=== PATIENT | female | born 1965 | race Two or more races ===

== ENCOUNTER 2017-04-24 08:25 | Emergency (ER) | payer BC ==
[2017-04-24 08:32] VITALS: BP 105/62; PULSE 93; TEMP 98.9; BMI 23.3
[2017-04-24] MEDS ORDERED: IBUPROFEN 400 MG TABLET (FP) PO ONE ×2 (09:04→09:13)
--- NOTE | 2017-04-24 09:22 | PDOC ---
History of Present Illness - General Chief Complaint: Cold Symptoms Stated Complaint: SOB Time Seen by Provider: 04/24/17 08:58 History Source: Patient Exam Limitations: No Limitations - History of Present Illness Initial Comments: 04/24/17 09:50 52 yr female no past medical history with chills, cough nasal congestion for 2 days. neg nvd neg abd pain or urinary complaints. Pt taking theraflu at home. 04/24/17 10:13 Past History - Past Medical History Allergies/Adverse Reactions: Allergies Allergy/AdvReac Type Severity Reaction Status Date / Time No Known Allergies Allergy Verified 04/24/17 08:32 Home Medications: Ambulatory Orders Cefpodoxime Proxetil [Vantin -] 100 mg PO BID #20 tablet 08/06/15 Lipase/Protease/Amylase [Creon Dr 24,000 Units Capsule] 1 each PO TID 08/06/15 Methocarbamol [Robaxin -] 500 mg PO TID PRN #30 tablet 08/06/15 Naproxen [Naprosyn -] 500 mg PO BID PRN #14 tablet 08/06/15 Oxycodone HCl/Acetaminophen [Percocet 5-325 mg Tablet -] 1 tab PO Q6H PRN #5 tablet 08/06/15 Benzonatate [Tessalon Pearls -] 200 mg PO TID #42 cap 04/24/17 Fluticasone Prop 0.05% Nasal [Flonase -] 1 - 2 spray NS DAILY #1 spray.pump COPD: No - Surgical History Abdominal Surgery: Yes (TUBAL LIGATION) - Reproductive History (#): 2 Para: 2 Cervical CA: No Dysfunctional Uterine Bleeding: No Ectopic : No Endometrial CA: No Polycystic Ovaries: No Therapeutic (s) & number: No Tubal Ligation: Yes - Suicide/Smoking/Psychosocial Hx Smoking Status: No Smoking History: Never smoked Have you smoked in the past 12 months: No Number of Cigarettes Smoked Daily: 0 Hx Alcohol Use: Yes (SOCIAL) Drug/Substance Use Hx: No Substance Use Type: None Respiratory Specific PMHX - Complaint Specific PMHX Angina: No Bronchitis: No Pneumonia: No Pulmonary Embolus: No TB (Tuberculosis): No Review of Systems - Review of Systems Able to Perform ROS?: Yes Is the patient limited Latvian proficient: No Constitutional: Yes: Symptoms Reported, Malaise HEENTM: Yes: Nose Congestion Respiratory: Yes: Cough (dry ) Cardiac (ROS): No: Symptoms Reported ABD/GI: No: Symptoms Reported : No: Symptoms Reported Musculoskeletal: No: Symptoms Reported Integumentary: No: Symptoms Reported Neurological: No: Symptoms reported *Physical Exam - Vital Signs Last Vital Signs Temp Pulse Resp BP Pulse Ox 98.9 F 93 H 20 105/62 99 04/24/17 08:30 04/24/17 08:30 04/24/17 08:30 04/24/17 08:30 04/24/17 08:30 - Physical Exam General Appearance: Yes: Nourished, Appropriately Dressed HEENT: positive: EOMI, RED, Normal ENT Inspection, TMs Normal, Nasal Congestion Neck: positive: Supple. negative: Lymphadenopathy (R), Lymphadenopathy (L) Respiratory/Chest: positive: Lungs Clear, Normal Breath Sounds. negative: Wheezing Cardiovascular: positive: Regular Rhythm, Regular Rate Gastrointestinal/Abdominal: positive: Normal Bowel Sounds, Soft. negative: Tender Musculoskeletal: positive: Normal Inspection Extremity: positive: Normal Capillary Refill, Normal Inspection, Normal Range of Motion Integumentary: positive: Normal Color, Dry, Warm Neurologic: positive: Fully Oriented, Alert, Normal Mood/Affect, Normal Response , Motor Strength 5/5 Medical Decision Making - Medical Decision Making 04/24/17 09:52 cc: nasal congestion cough body aches neg abd pain neg chest pain or SOB *DC/Admit/Observation/Transfer Diagnosis at time of Disposition: Upper respiratory infection, viral - Discharge Dispostion Disposition: HOME Condition at time of disposition: Good - Prescriptions Prescriptions: Benzonatate [Tessalon Pearls -] 200 mg PO TID #42 cap Fluticasone Prop 0.05% Nasal [Flonase -] 1 - 2 spray NS DAILY #1 spray.pump - Referrals Referrals: Fzoia Moulton MD [Primary Care Provider] - - Patient Instructions Printed Discharge Instructions: DI for Viral Upper Respiratory Infection -- Adult Additional Instructions: drink pleanty of fluids get pleanty of rest increase your vitamin C and Zinc intake daily (over the counter supplements of your choice) use the flonase nasal spray for congestion use the tessalon cough pills for cough as needed take motrin as needed or advil for pain follow with your doctor on Wednesday of not improcing Return to ER as needed - Post Discharge Activity Forms/Work/School Notes: Back to Work
== END 2017-04-24 10:27 | disposition home or self-care (01) ==
LOC: JERFT 08:25
DX: J06.9 Acute upper respiratory infection, unspecified (principal); B97.89 Other viral agents as the cause of diseases classified elsewhere
CPT/HCPCS: 87804; 99281-25

== ENCOUNTER 2017-11-16 17:36 | Emergency (ER) | payer BC, OTHER ==
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
[2017-11-16 17:41] VITALS: BP 125/69; PULSE 67; TEMP 98; BMI 22.6
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
[2017-11-16] MEDS ORDERED: KETOROLAC TROMETHAMINE 60 MG/2 ML VIAL IM ONE (18:54)
[2017-11-16] MEDS ORDERED: KETOROLAC TROMETHAMINE 60 MG/2 ML VIAL ONE (18:58)
== END 2017-11-16 19:05 | disposition home or self-care (01) ==
LOC: JERFT 17:36
CPT/HCPCS: 99281-25

== ENCOUNTER 2018-06-10 11:29 | Emergency (ER) | payer BC ==
[2018-06-10 11:39] VITALS: BP 103/69; PULSE 90; TEMP 98.7; BMI 22.4
[2018-06-10] MEDS ORDERED: IBUPROFEN 600 MG TABLET (FP) PO ONE ×2 (12:13→12:21)
--- NOTE | 2018-06-10 12:32 | PDOC ---
History of Present Illness - General Chief Complaint: Cold Symptoms Stated Complaint: FLU LIKE SYMPTOMS Time Seen by Provider: 06/10/18 11:57 - History of Present Illness Initial Comments: 06/10/18 12:51 53-year-old female complaining of body aches, nasal congestion, subjective fevers for 4 days. Patient reports that her brother has been diagnosed with the flu and is currently taking Tamiflu patient took one dose of Tamiflu last night. Denies nausea, vomiting, diarrhea, abdominal pain, reports that I need something for my body aches. Past History - Past Medical History Allergies/Adverse Reactions: Allergies Allergy/AdvReac Type Severity Reaction Status Date / Time No Known Allergies Allergy Verified 06/10/18 11:34 Home Medications: Ambulatory Orders Fluticasone Prop 0.05% Nasal [Flonase -] 1 - 2 spray NS BID #1 spray.pump Ibuprofen 600 mg PO QID PRN #20 tablet 06/10/18 COPD: No - Surgical History Abdominal Surgery: Yes (TUBAL LIGATION) - Reproductive History (#): 2 Para: 2 Cervical CA: No Dysfunctional Uterine Bleeding: No Ectopic : No Endometrial CA: No Polycystic Ovaries: No Therapeutic (s) & number: No Tubal Ligation: Yes - Suicide/Smoking/Psychosocial Hx Smoking Status: No Smoking History: Never smoked Have you smoked in the past 12 months: No Number of Cigarettes Smoked Daily: 0 Hx Alcohol Use: No Drug/Substance Use Hx: No Substance Use Type: None Respiratory Specific PMHX - Complaint Specific PMHX Angina: No Bronchitis: No Pneumonia: No Pulmonary Embolus: No TB (Tuberculosis): No Review of Systems - Review of Systems Able to Perform ROS?: Yes Is the patient limited Mosotho proficient: No Constitutional: Yes: Chills, Fever, Other (body aches) HEENTM: Yes: Nose Congestion Respiratory: Yes: Cough Cardiac (ROS): No: Symptoms Reported, See HPI, Chest Pain, Edema, Irregular Heart Rate, Lightheadedness, Palpitations, Syncope, Chest Tightness, Other ABD/GI: No: Symptoms Reported, See HPI, Abdominal Distended, Abd. Pain w/ defecation, Blood Streaked Bowels, Constipated, Diarrhea, Difficulty Swallowing , Nausea, Poor Appetite, Poor Fluid Intake, Rectal Bleeding, Vomiting, Indigestion, Abdominal cramping, Tarry Stools, Other Musculoskeletal: No: Symptoms Reported, See HPI, Back Pain, Gout, Joint Pain, Joint Swelling, Muscle Pain, Muscle Weakness, Neck Pain, Joint Stiffness, Other Integumentary: No: Symptoms Reported, See HPI, Bruising, Change in Color, Change in Hair/Nails, Dryness, Erythema, Flushing, Lesions, Lumps, Pallor, Pruritus, Rash, Sweating, Other Neurological: No: Symptoms reported, See HPI, Headache, Numbness, Paresthesia, Pre-Existing Deficit, Seizure, Tingling, Tremors, Weakness, Unsteady Gait, Ataxia, Dizziness, Other *Physical Exam - Vital Signs Last Vital Signs Temp Pulse Resp BP Pulse Ox 98.7 F 90 18 103/69 97 06/10/18 11:34 06/10/18 11:34 06/10/18 11:34 06/10/18 11:34 06/10/18 11:34 - Physical Exam General Appearance: Yes: Appropriately Dressed HEENT: positive: Tonsillar Erythema, Other (TM bilateral with diffusion mild erythema.) Respiratory/Chest: positive: Lungs Clear, Normal Breath Sounds (thank you) Cardiovascular: positive: Regular Rhythm, Regular Rate Gastrointestinal/Abdominal: positive: Normal Bowel Sounds, Soft Extremity: positive: Normal Capillary Refill, Normal Inspection, Normal Range of Motion Integumentary: positive: Normal Color, Dry, Warm Neurologic: positive: Fully Oriented, Alert, Normal Mood/Affect Moderate Sedation - Procedure Monitoring Vital Signs: Procedure Monitoring Vital Signs Temperature 98.7 F 06/10/18 11:34 Pulse Rate 90 06/10/18 11:34 Respiratory Rate 18 06/10/18 11:34 Blood Pressure 103/69 06/10/18 11:34 O2 Sat by Pulse Oximetry (%) 97 06/10/18 11:34 ED Treatment Course - Medications Given in the ED: ED Medications Discontinued Medications Generic Name Dose Route Start Last Admin Trade Name Freq PRN Reason Stop Dose Admin Ibuprofen 600 mg 06/10/18 12:13 06/10/18 12:24 Motrin - PO 06/10/18 12:14 600 mg ONCE ONE Administration *DC/Admit/Observation/Transfer Diagnosis at time of Disposition: Influenza A - Discharge Dispostion Disposition: HOME - Prescriptions Prescriptions: Fluticasone Prop 0.05% Nasal [Flonase -] 1 - 2 spray NS BID #1 spray.pump Ibuprofen 600 mg PO QID PRN #20 tablet PRN Reason: Pain - Referrals Referrals: Fozia Moulton MD [Primary Care Provider] - - Patient Instructions Printed Discharge Instructions: Influenza Additional Instructions: drink plenty of fluids. - Post Discharge Activity Forms/Work/School Notes: Back to Work
== END 2018-06-10 13:12 | disposition home or self-care (01) ==
LOC: JERFT 11:29
DX: J09.X2 Influenza due to identified novel influenza A virus with other respiratory manifestations (principal)
CPT/HCPCS: 87804; 99281-25

== ENCOUNTER 2018-12-25 16:17 | Emergency (ER) | payer BC ==
[2018-12-25 16:21] VITALS: BP 120/76; PULSE 78; TEMP 97.7; BMI 22.4
[2018-12-25] MEDS ORDERED: KETOROLAC TROMETHAMINE 60 MG/2 ML VIAL IM ONE (16:36)
[2018-12-25] MEDS ORDERED: LIDOCAINE 5% TOPICAL PATCH TP ONE (16:36)
[2018-12-25] MEDS ORDERED: KETOROLAC TROMETHAMINE 60 MG/2 ML VIAL ONE (16:38)
[2018-12-25] MEDS ORDERED: LIDOCAINE 5% TOPICAL PATCH ONE (16:38)
--- NOTE | 2018-12-25 16:42 | PDOC ---
History of Present Illness - General Chief Complaint: Back Pain Stated Complaint: BACK PAIN Time Seen by Provider: 12/25/18 16:23 History Source: Patient - History of Present Illness Occurred: reports: other Severity: reports: severe Pain Location: reports: back Past History - Past Medical History Allergies/Adverse Reactions: Allergies Allergy/AdvReac Type Severity Reaction Status Date / Time No Known Allergies Allergy Verified 12/25/18 16:21 Home Medications: Ambulatory Orders Fluticasone Prop 0.05% Nasal [Flonase -] 1 - 2 spray NS BID #1 spray.pump Ibuprofen 600 mg PO QID PRN #20 tablet 06/10/18 Cyclobenzaprine HCl [Flexeril 10 mg] 10 mg PO ASDIR #9 tablet 12/25/18 Ibuprofen [Motrin -] 800 mg PO Q6H #30 tablet 12/25/18 Lidocaine 5% Patch [Lidoderm Patch -] 1 patch TP DAILY #7 patch 12/25/18 COPD: No - Surgical History Abdominal Surgery: Yes (TUBAL LIGATION) - Reproductive History (#): 2 Para: 2 Cervical CA: No Dysfunctional Uterine Bleeding: No Ectopic : No Endometrial CA: No Polycystic Ovaries: No Therapeutic (s) & number: No Tubal Ligation: Yes - Suicide/Smoking/Psychosocial Hx Smoking Status: No Smoking History: Never smoked Have you smoked in the past 12 months: No Number of Cigarettes Smoked Daily: 0 Hx Alcohol Use: No Drug/Substance Use Hx: No Substance Use Type: None Review of Systems - Review of Systems Constitutional: No: Chills, Fever ABD/GI: No: Nausea, Vomiting, Abdominal cramping : Yes: Flank Pain. No: Burning, Dysuria, Hematuria Musculoskeletal: Yes: Back Pain Neurological: No: Numbness, Tingling, Weakness *Physical Exam - Vital Signs Last Vital Signs Temp Pulse Resp BP Pulse Ox 97.7 F 78 18 120/76 100 12/25/18 16:18 12/25/18 16:18 12/25/18 16:18 12/25/18 16:18 12/25/18 16:18 - Physical Exam General Appearance: Yes: Appropriately Dressed, Mild Distress HEENT: positive: Normal Voice Neck: positive: Supple Respiratory/Chest: negative: Respiratory Distress Gastrointestinal/Abdominal: positive: Soft. negative: Tender Musculoskeletal: positive: Vertebral Tenderness (to R lower back, no CVAT). negative: CVA Tenderness Extremity: positive: Normal Inspection Integumentary: positive: Dry, Warm Neurologic: positive: Fully Oriented, Alert, Normal Mood/Affect Medical Decision Making - Medical Decision Making 12/25/18 16:36 53-year-old female, endorses history of lower back pain, here with lower back pain radiating to R flank.. States pain started after she got up from a sitting position 4 days ago. Has been constant since and not relieved with [id number] medication. No leg pain, sensory changes, bowel or bladder incontinence or saddle anesthesia. States current pain worse than her usual lower back pain for which she has never received an official diagnosis and has had no MRI or CAT scans in the past per patient. Denies any nausea, vomiting, fever, chills or dysuria See exam Possible MSK back pain, i.e strain, spasm No red flags at this time UA w/ 1+ LE, 8 Wbc and 41 jenny-no dysuria and not convinced of UTI so will hold off on abx and send ucx Pain meds given here w/ some improvement in sxs -Dc w/ pain control and PMD f/u as needed *DC/Admit/Observation/Transfer Diagnosis at time of Disposition: Low back pain Qualifiers: Chronicity: acute Back pain laterality: right Sciatica presence: without sciatica Qualified Code(s): M54.5 - Low back pain - Discharge Dispostion Condition at time of disposition: Improved - Prescriptions Prescriptions: Cyclobenzaprine HCl [Flexeril 10 mg] 10 mg PO ASDIR #9 tablet Ibuprofen [Motrin -] 800 mg PO Q6H #30 tablet Lidocaine 5% Patch [Lidoderm Patch -] 1 patch TP DAILY #7 patch - Referrals - Patient Instructions Printed Discharge Instructions: Low Back Pain Additional Instructions: Take medications as prescribed and follow-up with your doctor if pain persists - Post Discharge Activity Forms/Work/School Notes: Back to Work
[2018-12-25 17:02] LABS: EPI CELLS 3.2 /HPF (0-5/HPF); HYALINE CASTS 2 /lpf (0-8); PH,URINE 6.5 (5.0-8.0); URINE APPEARANCE CLEAR; URINE BACTERIA 41.1 /hpf (NEGATIVE); URINE BILIRUBIN NEGATIVE (NEGATIVE); URINE COLOR YELLOW; URINE GLUCOSE (UA) NEGATIVE (NEGATIVE); URINE KETONE NEGATIVE (NEGATIVE); URINE LEUK ESTERASE 1+ (NEGATIVE); URINE NITRITE NEGATIVE (NEGATIVE); URINE PROTEIN NEGATIVE (NEGATIVE); URINE RBC 3 /hpf (0-4); URINE UROBILINOGEN 0.2 mg/dL (0.2-1.0); URINE WBC 8 /hpf (0-5)
[2018-12-25] MEDS ORDERED: LIDOCAINE PATCH REMOVAL MC SCH (22:00)
== END 2018-12-25 17:08 | disposition home or self-care (01) ==
LOC: JERFT 16:17
PROC: 3E0233Z Introduction of Anti-inflammatory into Muscle, Percutaneous Approach (ICD-10-PCS; principal; 2018-12-25)
DX: M54.5 Low back pain (principal)
CPT/HCPCS: 81003; 87086; 99282-25

== ENCOUNTER 2018-12-27 17:01 | Emergency (ER) | payer BC ==
--- NOTE | 2018-12-27 17:09 | PDOC ---
Rapid Medical Evaluation Time Seen by Provider: 12/27/18 17:04 Medical Evaluation: Allergies Allergy/AdvReac Type Severity Reaction Status Date / Time No Known Allergies Allergy Verified 12/25/18 16:21 12/27/18 17:08 HPI: Bounce back from 2 days ago for lower back pain, + Urine Cx untreated PE: No gross deficits ORDERS: UA and Cx Discharge Disposition - Diagnosis Low back pain - Referrals - Patient Instructions - Post Discharge Activity
[2018-12-27 17:15] VITALS: BP 116/74; PULSE 69; TEMP 98.1; BMI 22.4
[2018-12-27 18:14] LABS: EPI CELLS 3.7 /HPF (0-5/HPF); HYALINE CASTS 0 /lpf (0-8); PH,URINE 5.5 (5.0-8.0); URINE APPEARANCE CLEAR; URINE BACTERIA 53.3 /hpf (NEGATIVE); URINE BILIRUBIN NEGATIVE (NEGATIVE); URINE COLOR YELLOW; URINE GLUCOSE (UA) NEGATIVE (NEGATIVE); URINE KETONE NEGATIVE (NEGATIVE); URINE LEUK ESTERASE 1+ (NEGATIVE); URINE NITRITE NEGATIVE (NEGATIVE); URINE PROTEIN NEGATIVE (NEGATIVE); URINE RBC 1 /hpf (0-4); URINE UROBILINOGEN 0.2 mg/dL (0.2-1.0); URINE WBC 23 /hpf (0-5)
--- NOTE | 2018-12-27 18:56 | PDOC ---
History of Present Illness - General Chief Complaint: Back Pain Stated Complaint: BACK PAIN / ABNORMAL LAB Time Seen by Provider: 12/27/18 17:04 - History of Present Illness Initial Comments: 12/27/18 18:52 CHIEF COMPLAINT: R back pain HISTORY OF PRESENT ILLNESS: 53 yo F returns to fast track with persistent R lower back pain x 3 days. Patient states she was seen two days ago for R sided back pain and treated for sciatica but her pain persists, and today she was called by a provider here for positive ucx. Patient denies any urinary symptoms but c/o of R lower back pain w/ movement. 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 No recent travel or sick contacts. PAST MEDICAL HISTORY: Denies past medical history FAMILY HISTORY: Denies SOCIAL HISTORY: Denies tobacco, alcohol, illicit drug use. SURGICAL HISTORY: Denies ALLERGIES: No known drug allergies REVIEW OF SYSTEMS General/Constitutional: Denies fever or chills. Denies weakness, weight change. HEENT: Denies change in vision. Denies ear pain or discharge. Denies sore throat. Cardiovascular: Denies chest pain or shortness of breath. Respiratory: Denies cough, wheezing, or hemoptysis. Gastrointestinal: Denies nausea, vomiting, diarrhea or constipation. Denies rectal bleeding. Genitourinary: Denies dysuria, frequency, or change in urination. Musculoskeletal: R sided back pain. Skin and breasts: Denies rash or easy bruising. Neurologic: Denies headache, vertigo, loss of consciousness, or loss of sensation. PHYSICAL EXAM General Appearance: Well-appearing, appropriately dressed. No apparent distress , no intoxication. HEENT: EOMI, PERRLA, normal ENT inspection, normal voice, TMs normal, pharynx normal. No conjunctival pallor. No photophobia, scleral icterus. Neck: Supple. Trachea midline. No tenderness, rigidity, carotid bruit, stridor , lymphadenopathy, or thyromegaly. Respiratory/Chest: Lungs CTAB. No shortness of breath, chest tenderness, respiratory distress, accessory muscle use. No crackles, rales, rhonchi, stridor , wheezing, dullness Cardiovascular: RRR. S1, S2. No JVD, murmur, bradycardia, tachycardia. Vascular Pulses: Dorsalis-Pedis (R): 2+, Dorsalis-Pedis (L): 2+ Gastrointestinal/Abdominal: Normal bowel sounds. Abdomen soft, non-distended. No tenderness or rebound tenderness. No organomegaly, pulsatile mass, guarding , hernia, hepatomegaly, splenomegaly. Lymphatic: No adenopathy, tenderness. Musculoskeletal/Extremities: TTP R paravertebral muscles. NO CVAT. Normal inspection. FROM of all extremities, normal capillary refill. Pelvis Stable. No CVA tenderness. No tenderness to extremities, pedal edema, swelling, erythema or deformity. Integumentary: Appropriate color, dry, warm. No cyanosis, erythema, jaundice or rash Neurologic: wood repatcher II-XII intact. Fully oriented, alert. Appropriate mood/affect. Motor strength 5/5. No appreciable EOM palsy, facial droop or sensory deficit. Past History - Past Medical History Allergies/Adverse Reactions: Allergies Allergy/AdvReac Type Severity Reaction Status Date / Time No Known Allergies Allergy Verified 12/27/18 17:12 Home Medications: Ambulatory Orders Fluticasone Prop 0.05% Nasal [Flonase -] 1 - 2 spray NS BID #1 spray.pump Ibuprofen 600 mg PO QID PRN #20 tablet 06/10/18 Cyclobenzaprine HCl [Flexeril 10 mg] 10 mg PO ASDIR #9 tablet 12/25/18 Ibuprofen [Motrin -] 800 mg PO Q6H #30 tablet 12/25/18 Lidocaine 5% Patch [Lidoderm Patch -] 1 patch TP DAILY #7 patch 12/25/18 Diclofenac Sodium 75 mg PO BID #20 tablet. 12/27/18 Nitrofurantoin Monohyd/M-Cryst [Macrobid -] 100 mg PO BID #14 capsule 12/27/18 Phenazopyridine HCl [Pyridium] 200 mg PO TID #14 tablet 12/27/18 COPD: No - Surgical History Abdominal Surgery: Yes (TUBAL LIGATION) - Reproductive History (#): 2 Para: 2 Cervical CA: No Dysfunctional Uterine Bleeding: No Ectopic : No Endometrial CA: No Polycystic Ovaries: No Therapeutic (s) & number: No Tubal Ligation: Yes - Suicide/Smoking/Psychosocial Hx Smoking Status: No Smoking History: Never smoked Have you smoked in the past 12 months: No Number of Cigarettes Smoked Daily: 0 Hx Alcohol Use: No Drug/Substance Use Hx: No Substance Use Type: None *Physical Exam - Vital Signs Last Vital Signs Temp Pulse Resp BP Pulse Ox 98.1 F 69 18 116/74 99 12/27/18 17:05 12/27/18 17:05 12/27/18 17:05 12/27/18 17:05 12/27/18 17:05 ED Treatment Course - ADDITIONAL ORDERS Additional order review: Laboratory Results 12/27/18 12/27/18 18:25 17:50 Urine Color Yellow Urine Appearance Clear Urine pH 5.5 Ur Specific [place] 1.010 Urine Protein Negative Urine Glucose (UA) Negative Urine Ketones Negative Urine Blood Negative Urine Nitrite Negative Urine Bilirubin Negative Urine Urobilinogen 0.2 Ur Leukocyte Esterase 1+ H Urine WBC (Auto) 23 Urine RBC (Auto) 1 Urine Casts (Auto) 0 U Epithel Cells (Auto) 3.7 Urine Bacteria (Auto) 53.3 Urine HCG, Qual Negative Medical Decision Making - Medical Decision Making 12/27/18 18:55 53 yo F returns to fast track with persistent R lower back pain x 3 days. -UA, Ucx 23 WBCs, will treat as UTI given +ucx last time. *DC/Admit/Observation/Transfer Diagnosis at time of Disposition: Low back pain Qualifiers: Chronicity: acute Back pain laterality: right Sciatica presence: unspecified whether sciatica present Qualified Code(s): M54.5 - Low back pain UTI (urinary tract infection) Qualifiers: Urinary tract infection type: site unspecified Hematuria presence: without hematuria Qualified Code(s): N39.0 - Urinary tract infection, site not specified - Discharge Dispostion Disposition: HOME Condition at time of disposition: Stable Decision to Admit order: No - Prescriptions Prescriptions: Diclofenac Sodium 75 mg PO BID #20 tablet. Nitrofurantoin Monohyd/M-Cryst [Macrobid -] 100 mg PO BID #14 capsule Phenazopyridine HCl [Pyridium] 200 mg PO TID #14 tablet - Referrals Referrals: Fozia Moulton MD [Primary Care Provider] - Fadi Barreto DO [Staff Physician] - - Patient Instructions Printed Discharge Instructions: DI for Urinary Tract Infection (UTI), DI for Muscle Strain Additional Instructions: Please take medications as prescribed. Follow up with orthopedics if symptoms persist. - Post Discharge Activity
== END 2018-12-27 19:00 | disposition home or self-care (01) ==
LOC: JERFT 17:01
DX: N39.0 Urinary tract infection, site not specified (principal); M54.5 Low back pain
CPT/HCPCS: 81003; 84703; 87077; 87086; 99281-25

== ENCOUNTER 2020-09-09 21:14 | Emergency (ER) | payer BC ==
[2020-09-09 21:24] VITALS: BP 143/88; PULSE 95; TEMP 98.2; BMI 22.4
[2020-09-09] MEDS ORDERED: DIPHTH,PERTUSS(ACELL),TET 0.5 ML DISP.SYRIN IM ONE ×2 (21:35→22:01)
== END 2020-09-09 22:31 | disposition home or self-care (01) ==
LOC: JER 21:14
PROC: 3E0234Z Introduction of Serum, Toxoid and Vaccine into Muscle, Percutaneous Approach (ICD-10-PCS; principal; 2020-09-09)
DX: S91.312A Laceration without foreign body, left foot, initial encounter (principal); W22.8XXA Striking against or struck by other objects, initial encounter
CPT/HCPCS: 73630-TC-LT; 90715; 99283-25

== ENCOUNTER 2020-09-18 16:48 | Emergency (ER) | payer BC ==
[2020-09-18 17:12] VITALS: BP 111/79; PULSE 74; TEMP 97.8; BMI 22.3
== END 2020-09-18 17:36 | disposition home or self-care (01) ==
LOC: JERFT 16:48
DX: Z48.00 Encounter for change or removal of nonsurgical wound dressing (principal)
CPT/HCPCS: 99281-25

== ENCOUNTER 2020-09-21 20:36 | Emergency (ER) | payer BC ==
[2020-09-21 20:41] VITALS: BP 131/80; PULSE 77; TEMP 98.9; BMI 23.1
== END 2020-09-21 21:12 | disposition home or self-care (01) ==
LOC: JER 20:36 → JERFT 20:36
DX: Z48.02 Encounter for removal of sutures (principal)
CPT/HCPCS: 99281-25